=== PATIENT | female | born 1995 | race Two or more races ===

== ENCOUNTER 2017-04-13 19:54 | Emergency (ER) | payer MEDICAID ==
[~2017-04-13] VITALS: Ht 162.6 cm; Wt 113.4 kg
--- NOTE | 2017-04-13 23:34 | NUR ---
PT BIBSELF, AMBULATORY TO ER BED 6 C/O NAUSEA/ VOMIT X 2 DAYS. PT AOX4 RR EVEN AND UNLABORED. NO SOB NOTED. NAD NOTED. NO NVD AT THIS TIME. PT PLACED ON MONITOR. DR. SCHROEDER AT BEDSIDE FOR EVAL.
[2017-04-13 23:35] VITALS: BP 115/59
[2017-04-13] MEDS ORDERED: ONDANSETRON 4 MG TAB.RAPDIS ONE (23:47)
--- NOTE | 2017-04-13 23:48 | NUR ---
URINE COLLECTED. SENT TO LAB
[2017-04-14] MEDS ORDERED: ONDANSETRON 4 MG TAB.RAPDIS SL ONE
== END 2017-04-14 00:17 | disposition home or self-care (01) ==
LOC: ER 20:00
DX: R11.2 Nausea with vomiting, unspecified (principal); B19.20 Unspecified viral hepatitis C without hepatic coma
CPT/HCPCS: A4606; Q0162; Z7610

== ENCOUNTER 2018-03-03 16:50 | Emergency (ER) | payer BC, MEDICAID ==
[~2018-03-03] VITALS: Ht 162.6 cm; Wt 99.8 kg
[2018-03-03] MEDS ORDERED: ONDANSETRON HCL/PF 4 MG/2 ML VIAL ONE (17:09)
--- NOTE | 2018-03-03 17:22 | NUR ---
PT REC'D TO R C/O 3 DAYS GENO Martinez CHIRAG HAD A BM IN 3 DAYS UA SENT TO LAB IV STATED 29-G IV LEFT AC LABS DRAWN SENT TO LAB
--- NOTE | 2018-03-03 17:23 | NUR ---
IV NS BOLUS GIVEN ZOFRAN 4 MG IVP
--- NOTE | 2018-03-03 17:24 | NUR ---
PT STATED PAIN ABD 03/10
[2018-03-03] MEDS ORDERED: ONDANSETRON HCL/PF 4 MG/2 ML VIAL IVP ONE (17:30)
[2018-03-03] MEDS ORDERED: IV NS 0.9% 1,000 ML BAG IV ONE (17:30)
[2018-03-03 17:32] LABS: APPEARANCE,URINE Cloudy (CLEAR); BILIRUBIN,URINE Negative (NEGATIVE); BLOOD, URINE Negative Ery/uL (NEGATIVE); COLOR,URINE Yellow (YELLOW); KETONES,URINE Trace (NEGATIVE); LEUKOCYTE ESTERASE ,URINE Trace (NEGATIVE); NITRITE, URINE Negative (NEGATIVE); PH,URINE 7.5 (5.0-8.0); PROTEIN,URINE Negative (NEGATIVE); UGLUCOSE Negative (NEGATIVE); UROBILINOGEN,URINE 0.2 EU/dL (0.2)
[2018-03-03 17:37] LABS: BACTERIA,URINE 3+ /HPF (None Seen); RBC,URINE NONE SEEN /HPF (0-2); SQUAMOUS EPITHELIAL CELL,UR Many /HPF (None Seen)
--- NOTE | 2018-03-03 17:44 | NUR ---
PT STATED FEELING LESS NAUSOUS
--- NOTE | 2018-03-03 18:11 | NUR ---
PT IS NOT A CANDIDATE FOR [facility] PER [facility], DR BRYAN NOTIFIED
--- NOTE | 2018-03-03 19:11 | NUR ---
REPORT RECEIVED FROM VALE CONKLIN FOR [facility].
[2018-03-03 20:07] VITALS: BP 119/66
== END 2018-03-03 20:08 | disposition home or self-care (01) ==
LOC: ER 16:51
DX: O21.9 Vomiting of pregnancy, unspecified (principal); K59.00 Constipation, unspecified; Z86.19 Personal history of other infectious and parasitic diseases; Z3A.08 8 weeks gestation of pregnancy
CPT/HCPCS: 36415; 76856-TC; 81000-TC; 84702-TC; 87086-TC; A4606; J2405; J7030; Z7610

== ENCOUNTER 2018-03-14 11:44 | Emergency (ER) | payer BC ==
[~2018-03-14] VITALS: Ht 162.6 cm; Wt 107.0 kg
--- NOTE | 2018-03-14 12:00 | NUR ---
AAOX3, CAME TO ER C/O NAUSEA AND VOMITING X 1 WEEK, 12 WEEKS . RR IS EVEN AND UNLABORED WITH NAD NOTED. SKIN IS WARM AND DRY. AWAITING MD FOR EVAL.
[2018-03-14] MEDS ORDERED: ONDANSETRON HCL/PF 4 MG/2 ML VIAL ONE ×2 (12:16→13:14)
[2018-03-14 12:22] LABS: BASOPHILS % (AUTO) 0.2 % (0.0-2.0); EOSINOPHILS % (AUTO) 0.6 % (0.0-6.0); HEMATOCRIT 42 % (33-45); HEMOGLOBIN 14.2 g/dL (11.5-14.8); LYMPHOCYTES # (AUTO) 3.4 /CMM (0.8-4.8); LYMPHOCYTES % (AUTO) 25.9 % (20.0-44.0); MEAN CORPUSCULAR HGB CONC 34 g/dl (31.0-36.0); MEAN CORPUSCULAR VOLUME 91 fL (82-100); MONOCYTES # (AUTO) 0.7 /CMM (0.1-1.30); MONOCYTES % (AUTO) 5.5 % (2.0-12.0); NEUTROPHILS # (AUTO) 8.9 /CMM (1.8-8.9); NEUTROPHILS % (AUTO) 67.8 % (43.0-81.0); PLATELET COUNT (AUTO) 262 /CMM (150-450); RDW COEFFICIENT OF VARIATION 15.1 (11.5-15.0); RED BLOOD CELL COUNT(AUTO) 4.59 MIL/uL (4.0-5.2); WHITE BLOOD COUNT (AUTO) 13.1 K/uL (4.3-11.0)
[2018-03-14 12:26] LABS: CALCIUM, SERUM 9.6 mg/dL (8.5-10.1); CREATININE 0.5 mg/dL (0.6-1.3)
[2018-03-14] MEDS ORDERED: IV NS 0.9% 1,000 ML BAG IV ONE (12:30)
[2018-03-14] MEDS ORDERED: ONDANSETRON HCL/PF 4 MG/2 ML VIAL IVP ONE ×2 (12:30→13:30)
[2018-03-14 12:31] LABS: ALBUMIN 3.3 g/dL (3.4-5.0); BILIRUBIN,DIRECT 0.1 mg/dL (0.0-0.2); BILIRUBIN,TOTAL 0.4 mg/dL (0.2-1.0); TOTAL PROTEIN, SERUM 7.6 g/dL (6.4-8.2)
[2018-03-14] MEDS ORDERED: METOCLOPRAMIDE HCL 10 MG/2 ML VIAL ONE (13:14)
[2018-03-14] MEDS ORDERED: METOCLOPRAMIDE HCL 10 MG/2 ML VIAL IV ONE (13:30)
[2018-03-14 13:53] VITALS: BP 120/70
== END 2018-03-14 13:54 | disposition home or self-care (01) ==
LOC: ER 11:47
DX: O21.0 Mild hyperemesis gravidarum (principal); Z86.19 Personal history of other infectious and parasitic diseases; Z3A.12 12 weeks gestation of pregnancy
CPT/HCPCS: 36415; 80048-TC; 80076-TC; 83690-TC; 85025-TC; A4216; A4606; J2405; J2765; J7030; Z7610

== ENCOUNTER 2018-03-18 00:13 | Emergency (ER) | payer BC ==
[~2018-03-18] VITALS: Ht 162.6 cm; Wt 95.3 kg
--- NOTE | 2018-03-18 01:07 | NUR ---
PT AMBULATORY TO ER BED 17. BIB FAMILY C/O BACK PAIN WITH N/V X 4 DAYS. PT PLACED ON SUPERVISOR FRAME ASSEMBLY. PT VSS/NAD NOTED/RESP EVEN UNLABORED/SKIN WARM AND DRY/AFEBRILE/AOX4. AWAITING MD GOYAL.
--- NOTE | 2018-03-18 01:08 | NUR ---
URINE SPECIMEN OBTAINED AND SENT TO THE LAB.
--- NOTE | 2018-03-18 01:10 | NUR ---
PT IS G-4.P-2. PT STATES SHE IS 12 WEEKS NOW.
[2018-03-18] MEDS ORDERED: METOCLOPRAMIDE HCL 10 MG/2 ML VIAL ONE (01:22)
--- NOTE | 2018-03-18 01:25 | NUR ---
18G IV TO L AC X 1 ATTEMPT USING ASEPTIC TECHNIQUE, BLOOD HANDED OVER TO THE LAB AT THE BEDSIDE. IV FLUSHES EASILY WITH NS, NO S/S INFILTRATION NOTED AT THIS TIME.
[2018-03-18] MEDS ORDERED: IV NS 0.9% 1,000 ML BAG IV ONE (01:30)
[2018-03-18] MEDS ORDERED: METOCLOPRAMIDE HCL 10 MG/2 ML VIAL IV ONE (01:30)
[2018-03-18 01:38] LABS: APPEARANCE,URINE SL CLOUDY (CLEAR); BILIRUBIN,URINE NEGATIVE (NEGATIVE); BLOOD, URINE NEGATIVE Ery/uL (NEGATIVE); COLOR,URINE YELLOW (YELLOW); KETONES,URINE NEGATIVE (NEGATIVE); LEUKOCYTE ESTERASE ,URINE NEGATIVE (NEGATIVE); NITRITE, URINE NEGATIVE (NEGATIVE); PROTEIN,URINE NEGATIVE (NEGATIVE); UGLUCOSE NEGATIVE (NEGATIVE); UROBILINOGEN,URINE 0.2 EU/dL (0.2)
[2018-03-18 01:46] LABS: CALCIUM, SERUM 8.9 mg/dL (8.5-10.1); CREATININE 0.5 mg/dL (0.6-1.3); POTASSIUM 3.9 mmol/L (3.5-5.1)
--- NOTE | 2018-03-18 02:58 | NUR ---
Patient discharged to home in stable condition. Written and verbal after care instructions given. Patient verbalizes understanding of instruction.IV removed. Catheter intact and site benign. Pressure and 4x4 applied to site. No bleeding noted. VSS UPON DISCHARGE
[2018-03-18 03:04] VITALS: BP 121/73
== END 2018-03-18 03:05 | disposition home or self-care (01) ==
LOC: ER 00:16
DX: O21.8 Other vomiting complicating pregnancy (principal); Z3A.12 12 weeks gestation of pregnancy
CPT/HCPCS: 36415; 80048-TC; 81000-TC; 82010-TC; A4606; J2765; J7030; Z7610